=== PATIENT | female | born 1990 | race Caucasian/White ===

== ENCOUNTER → 2022-06-12 | Outpatient (CLI) | payer OTHER ==
[2022-06-12 10:39] LABS: FREE T4 1.1 ng/dl (0.89-1.76); THYROID STIM HORMONE (HS) 1.259 uIU/ml (0.550-4.780)
== END | disposition home or self-care (01) ==
LOC: LAB 09:47
PROVIDERS: ATTEND Specialist
DX: L70.0 Acne vulgaris (principal); L60.0 Ingrowing nail; L21.9 Seborrheic dermatitis, unspecified; L29.9 Pruritus, unspecified; L71.8 Other rosacea